=== PATIENT | male | born 1975 | race Caucasian/White ===

== ENCOUNTER 2016-10-30 10:32 | Emergency (ER) | payer SELFPAY ==
[~2016-10-30] VITALS: Ht 182.9 cm; Wt 99.3 kg
[~2016-10-30 10:32] MED LIST: CLON0.1T PO; SUBO8MIS SL; XANA1TAB2 PO
[2016-10-30 11:02] VITALS: BP 97/70; PULSE 98; RESP 16; TEMP 97.7; O2SAT 95
--- NOTE | 2016-10-30 12:34 | PD ---
HPI Chief Complaint: Hypertension Time Seen by Provider: 12:22 Travel History International Travel<30 days: No Contact w/Intl Traveler<30days: No Traveled to known affect area: No History of Present Illness HPI This is a 40 year old Male who has a history of high blood pressure and anxiety who presents to the emergency department reporting lightheadedness, feeling like his blood pressure is high. He says he took a dose of his father's Lasix. He says that he usually takes xanax and clonidine, however he is concerned that coming off of the Xanax will predispose him to having a seizure. PFSH Past Medical History Anemia: Yes Arthritis: No Asthma: No Blood Disorders: No Anxiety: Yes Depression: No Heart Rhythm Problems: Yes (TACHYCARDIA) Cancer: No Cardiovascular Problems: No High Cholesterol: No Chest Pain: No Congestive Heart Failure: No Cerebrovascular Accident: No Diabetes: No Diminished Hearing: Yes ([place] left ear) Endocrine: No Genitourinary: No Headaches: No Hiatal Hernia: Yes Hypertension: Yes Immune Disorder: No Kidney Stones: No Musculoskeletal: No Neurologic: No Psychiatric: No Reproductive: No Respiratory: No Immunizations Current: No Migraines: No Myocardial Infarction: No Pneumonia: Yes Renal Failure: No Seizures: Yes (STATES HE HAS HAD SEIZURES IN THE PAST) Ulcer: Yes Past Surgical History Abdominal Surgery: No AICD: No Arteriovenous Shunt: No Cardiac Surgery: No Ear Surgery: No Endocrine Surgery: No Eye Surgery: No Genitourinary Surgery: No Gynecologic Surgery: No Insulin Pump: No Joint Replacement: No Oral Surgery: No Pacemaker: No Thoracic Surgery: Yes (left lobectomy for pneumonia) Social History Alcohol Use: No Tobacco Use: No Substance Use: No Allergies-Medications (Allergen,Severity, Reaction): Coded Allergies: Codeine (Verified Allergy, Severe, vomiting, 10/30/16) Hydrocodone (Verified Allergy, Severe, vomiting, 10/30/16) Reported Meds & Prescriptions Reported Meds & Active Scripts Active Xanax (Alprazolam) 1 Mg Tab 1 Mg PO BID Reported Clonidine (Clonidine HCl) 0.1 Mg Tab 0.1 Mg PO BID Suboxone Sublingual Film (Buprenorphine-Naloxone Sublingual Film) 8-2 Mg Film 1 Film SL Unique ID number required: Xanax (Alprazolam) 1 Mg Tab 1 Mg PO BID PRN Review of Systems Except as stated in HPI: all other systems reviewed are Neg Physical Exam Narrative GENERAL: Well-nourished, well-developed patient. SKIN: Warm and dry. HEAD: Normocephalic. EYES: No scleral icterus. No injection or drainage. NECK: Supple, trachea midline. CARDIOVASCULAR: Regular rate and rhythm without murmurs. RESPIRATORY: Breath sounds equal bilaterally. No accessory muscle use. GASTROINTESTINAL: Abdomen soft, non-tender, nondistended. MUSCULOSKELETAL: No cyanosis, or edema. Data Data Last Documented VS Vital Signs Date Time Temp Pulse Resp B/P Pulse Ox O2 Delivery O2 Flow Rate FiO2 10/30/16 11:02 97.7 98 16 97/70 95 MDM Medical Decision Making Medical Screen Exam Complete: Yes Emergency Medical Condition: Yes Differential Diagnosis Benzodiazepine withdrawal, anxiety, hypertension Narrative Course This is a 40-year-old male who presents to the emergency department requesting refills of Xanax and clonidine. He has a normal blood pressure here. He is nontoxic appearing. When I explained to him that I was unable to refill his Xanax or clonidine he abruptly left the emergency Department. I did offer him Librium to prevent seizures but he didn't stay to receive his discharge instructions or his prescription. Review of the prescription drug database demonstrates the patient is on Suboxone which he did not disclose to me. He has stated allergies to codone and hydrocodone. Given his bizarre behavior, request for specific prescriptions, and stated drug allergies he has multiple red flags for drug-seeking behavior. Diagnosis Primary Impression: Drug-seeking behavior Martha Ward MD Oct 30, 2016 12:34
== END 2016-10-30 12:44 | disposition home or self-care (01) ==
LOC: PHED 10:32
DX: Z76.5 Malingerer [conscious simulation] (principal); I10 Essential (primary) hypertension; R00.0 Tachycardia, unspecified
CPT/HCPCS: 99283

== ENCOUNTER 2017-07-03 01:06 | Emergency (ER) | payer SELFPAY ==
[~2017-07-03] VITALS: Ht 180.3 cm; Wt 84.2 kg
[~2017-07-03 01:06] MED LIST changes: -SUBO8MIS SL
[2017-07-03 01:15] VITALS: BP 161/99; PULSE 87; RESP 16; TEMP 98.8; O2SAT 99
[2017-07-03 01:48] VITALS: BP 161/99; PULSE 87; RESP 18; TEMP 98.8; O2SAT 99
[2017-07-03] MEDS ORDERED: CYCLOPENTOLATE HCL 1% OPHT SOLN 2 ML BTL LEFT EYE ONE (02:15)
[2017-07-03] MEDS ORDERED: TOBRAMYCIN SULFATE 0.3% OPTH OINT 3.5 GM TUBE LEFT EYE ONE (02:15)
[2017-07-03] MEDS ORDERED: TOBR.3%O LEFT EYE (02:17)
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
[2017-07-03 02:18] VITALS: BP 151/95
== END 2017-07-03 02:40 | disposition home or self-care (01) ==
LOC: PHED 01:06
DX: S05.02XA Injury of conjunctiva and corneal abrasion without foreign body, left eye, initial encounter (principal); H20.9 Unspecified iridocyclitis; I10 Essential (primary) hypertension; H91.92 Unspecified hearing loss, left ear; Z86.2 Personal history of diseases of the blood and blood-forming organs and certain disorders involving the immune mechanism; Z86.59 Personal history of other mental and behavioral disorders; Z86.79 Personal history of other diseases of the circulatory system; Z87.19 Personal history of other diseases of the digestive system; Z86.69 Personal history of other diseases of the nervous system and sense organs; W22.8XXA Striking against or struck by other objects, initial encounter
CPT/HCPCS: 99283

== ENCOUNTER 2018-02-08 14:33 | Emergency (ER) | payer MEDICAID, OTHER ==
[~2018-02-08] VITALS: Ht 180.3 cm; Wt 82.5 kg
[~2018-02-08 14:33] MED LIST changes: +TOBR.3%O LEFT EYE
[2018-02-08 14:35] VITALS: BP 183/121; PULSE 101; RESP 16; TEMP 97.6; O2SAT 99
[2018-02-08] MEDS ORDERED: ONDANSETRON HCL 4 MG/2 ML VIAL IV PUSH ONE (15:15)
[2018-02-08] MEDS ORDERED: TETANUS/DIPHTHERIA TOXOID ADULT 0.5 ML VIAL IM ONE (15:15)
[2018-02-08] MEDS ORDERED: MORPHINE SULFATE 2 MG/ML SYRINGE IV PUSH ONE (15:15)
[2018-02-08] MEDS ORDERED: LIDOCAINE 1%/EPINEPHrine 1:100,000 SOLN 20 ML VIAL INFIL ONE (15:15)
[2018-02-08] MEDS ORDERED: MORPHINE SULFATE 4 MG/ML INJ IV PUSH ONE (15:15)
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
[2018-02-08 15:18] LABS: AUTOMATED NEUTROPHIL # 6.3 TH/MM3 (1.8-7.7); BASOPHIL # 0.3 TH/MM3 (0-0.2); BASOPHIL % 3.7 % (0.0-2.0); EOSINOPHIL # 0.2 TH/MM3 (0-0.4); EOSINOPHIL % 2.7 % (0.0-4.0); HEMATOCRIT 47.4 % (39.0-51.0); HEMOGLOBIN 16.2 GM/DL (13.0-17.0); LYMPH % 17.5 % (9.0-44.0); LYMPHOCYTE # 1.6 TH/MM3 (1.0-4.8); MEAN CELL VOLUME 89.3 FL (80.0-100.0); MEAN CORPUSCULAR HEMOGLOBIN 30.5 PG (27.0-34.0); MEAN CORPUSCULAR HGB CONC 34.1 % (32.0-36.0); MEAN PLATELET VOLUME 7.8 FL (7.0-11.0); MONO % 5.4 % (0.0-8.0); MONOCYTE # 0.5 TH/MM3 (0-0.9); NEUT % 70.7 % (16.0-70.0); PLATELET COUNT 220 TH/MM3 (150-450); RED BLOOD COUNT 5.31 MIL/MM3 (4.50-5.90); RED CELL DISTRIBUTION WIDTH 13.2 % (11.6-17.2); WHITE BLOOD COUNT 8.9 TH/MM3 (4.0-11.0)
[2018-02-08 15:28] LABS: CALCIUM 9.1 MG/DL (8.5-10.1)
[2018-02-08 15:30] VITALS: RESP 18
[2018-02-08 15:32] LABS: CREATININE 0.95 MG/DL (0.60-1.30)
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
[2018-02-08] MEDS ORDERED: TRAM50 PO (16:57)
[2018-02-08] MEDS ORDERED: IBUP-232 PO (16:57)
[2018-02-08] MEDS ORDERED: TYLETAB34 PO (17:20)
[2018-02-08 17:22] VITALS: BP 168/99
--- NOTE | 2018-02-08 17:22 | PD ---
Physical Exam Narrative I was asked by my attending physician to perform laceration repair patient's facial lac Data Data Last Documented VS Vital Signs Date Time Temp Pulse Resp B/P (MAP) Pulse Ox O2 Delivery O2 Flow Rate FiO2 02/08/18 15:30 18 02/08/18 14:35 97.6 101 183/121 (141) 99 Orders Orders Complete Blood Count With Diff (02/08/18 15:04) Basic Metabolic Panel (Bmp) (02/08/18 15:04) Iv Access Insert/Monitor (02/08/18 15:04) Morphine Inj (Morphine Inj) (02/08/18 15:15) Ondansetron Inj (Zofran Inj) (02/08/18 15:15) Tetanus/Diphtheria Tox Adult (Tetanus/Di (02/08/18 15:15) Lidocai-Epi 1%-1:100,000 Inj (Xylocaine- (02/08/18 15:15) Ct Facial Bones W/O Iv Cont (02/08/18 15:06) Morphine Inj (Morphine Inj) (02/08/18 15:15) Ed Discharge Order (02/08/18 16:58) Labs Laboratory Tests Test 02/08/18 15:15 White Blood Count 8.9 TH/MM3 Red Blood Count 5.31 MIL/MM3 Hemoglobin 16.2 GM/DL Hematocrit 47.4 % Mean Corpuscular Volume 89.3 FL Mean Corpuscular Hemoglobin 30.5 PG Mean Corpuscular Hemoglobin Concent 34.1 % Red Cell Distribution Width 13.2 % Platelet Count 220 TH/MM3 Mean Platelet Volume 7.8 FL Neutrophils (%) (Auto) 70.7 % Lymphocytes (%) (Auto) 17.5 % Monocytes (%) (Auto) 5.4 % Eosinophils (%) (Auto) 2.7 % Basophils (%) (Auto) 3.7 % Neutrophils # (Auto) 6.3 TH/MM3 Lymphocytes # (Auto) 1.6 TH/MM3 Monocytes # (Auto) 0.5 TH/MM3 Eosinophils # (Auto) 0.2 TH/MM3 Basophils # (Auto) 0.3 TH/MM3 CBC Comment DIFF FINAL Differential Comment Blood Urea Nitrogen 15 MG/DL Creatinine 0.95 MG/DL Random Glucose 115 MG/DL Calcium Level 9.1 MG/DL Sodium Level 142 MEQ/L Potassium Level 3.4 MEQ/L Chloride Level 106 MEQ/L Carbon Dioxide Level 32.0 MEQ/L Anion Gap 4 MEQ/L Estimat Glomerular Filtration Rate 87 ML/MIN MDM Supervised Visit with PHILLIP: Yes Procedures Procedure Narrative LACERATION LOCATION: Left upper lip LENGTH: 1 cm NUMBER OF STITCHES/TANIA: 4 REPAIR: The area of the laceration was prepped with Betadine and sterilely draped. The laceration was infiltrated with 1% lidocaine. The wound was copiously irrigated and explored without evidence of foreign body. The wound was closed using 5-0 Ethilon. This was a single layer repair. The patient was advised to keep the dressing clean and dry. Patient tolerated the procedure well. Diagnosis Primary Impression: Mandible fracture Qualified Codes: S02.652A - Fracture of angle of left mandible, initial encounter for closed fracture Additional Impression: Laceration of vermilion border of upper lip without complication Qualified Codes: S01.511A - Laceration without foreign body of lip, initial encounter Referrals: Igor Wang DDS 3 days Patient Instructions: General Instructions, Jaw Fracture in Adults (ED), Facial Laceration (ED) Departure Forms: Tests/Procedures Additional Instruction: Take medications as needed for pain. Follow-up with oral surgeon on Sunday. N.p.o. after midnight on Sunday night. Scripts Acetaminophen-Codeine (Tylenol-Codeine #3) 300-30 mg Tab 1 TAB PO Q6H Y for PAIN, #12 TAB 0 Refills Prov: Darion Chavez MD 02/08/18 Ibuprofen (Ibuprofen) 600 Mg Tab 600 MG PO TID for Pain, #21 TAB 0 Refills Prov: Darion Chavez MD 02/08/18 Disposition: 01 DISCHARGE HOME Condition: Stable Ann Samaniego February 08, 2018 17:22
== END 2018-02-08 17:28 | disposition home or self-care (01) ==
LOC: PHED 14:33
DX: S02.609A Fracture of mandible, unspecified, initial encounter for closed fracture (principal); S01.511A Laceration without foreign body of lip, initial encounter; D64.9 Anemia, unspecified; F41.9 Anxiety disorder, unspecified; I10 Essential (primary) hypertension; Y09 Assault by unspecified means; Z86.69 Personal history of other diseases of the nervous system and sense organs; Z23 Encounter for immunization; Z72.0 Tobacco use
CPT/HCPCS: 12011; 70486; 80048; 85025; 90471; 90714; 96374; 96375; 99284; J2270; J2405